=== PATIENT | female | born 1995 | race Caucasian/White ===

== ENCOUNTER 2025-05-14 08:51 | Emergency (ER) | payer SELFPAY ==
--- OUTSIDE RECORDS SUMMARY | 2025-05-10 18:15 | XMS_ITS | Encounter Summary ---
Author Organization [facility] tem Address [id number] [address] [place] [address] Care Team Providers Care Sales Agent [employer] Name Role Phone Ten Paulson DO Primary Care Provider [phone] Reason for Visit * Reason Comments Foot Pain Ankle Pain Patient c/o right fo ot and ankle pain for 3-4 days. States she jumped in shallow pool and landed hard on right foot Encounter Details Date Type Department Care Team (Late st Contact Info) Description 05/10/2025 6:15 PM EDT - 05/10/2025 8:22 PM EDT Emergency [facility] - Emergency [address] [place] [address] Right foot pain (Primary Dx) Discharge Disposition: Home Social History Tobacco Use Types Packs/Day Years Used Date Smoking Tobacco: Never Smokeless Tobacco: Never Alcohol Use Standard Drinks/Week Comments Yes 0 (1 standard drink = 0.6 oz pur e alcohol) maybe once a month Childcare Answer Date Recorded Childcare Unknown 03/06/2019 Employment Answer Date Recorded Employment Unknown 03/06/2019 Hunger Screening Answer Date Recorded Within the past 12 months we worried whether our food would run out before we got money to buy more. Never True 05/10/2025 Within the past 12 months th e food we bought just didn't last and we didn't have money to get more. Never True 05/10/2025 Purpose - Life Answer Date Recorded Purpose and direction in life Unknown Comments No Sex and Gender Information Value Date Recorded Sex Assigned at Not on file Legal Sex Female 11:49 AM EDT Gender Identity Not on file Sexual Orientation Not on file documented as of this encounter Last Filed Vital Signs Vital Sign Reading Time Taken Comments Blood Pressure 127/94 05/10/2025 8:19 PM EDT Pulse 79 05/10/2025 8:19 PM EDT Temperature 37 C (98.6 F) 05/10/2025 5:40 PM EDT Respiratory Rate 17 05/10/2025 8:19 PM EDT Oxygen Saturation 98% 05/10/2025 8:19 PM EDT Inhaled Oxygen Concentration - - Weight 76.2 kg (168 lb) 05/10/2025 5:40 PM EDT Height 157.5 cm (5' 2 ) 05/10/2025 5:40 PM EDT Body Mass Index 30.73 05/10/2025 5:40 PM EDT documented in this encounter Discharge Instructions * Discharge Instructions* ANASTASIYA Gonzalez - 05/10/2025 7:59 PM EDT Thank you for choosing us for your medical care. We know you have a choice, and we appreciate you choosing us for your medical concerns! You may receive a survey from the hospital about your visit. We very much appreciate your comments and concerns. Please read all medication insert instructions and side effects when dispensed by the pharmacy. Every medication has side effects, and you may experience any of them. Please call the emergency room with any questions or concerns you have. Please call your doctor for outpatient follow up and recommendations. The emergency room cannot replace ongoing care, and it is important for your personal physician to evaluate you and monitor your health. Return to the ER for increased pain, fever > 101.5, vomiting twice, or any concern you deem emergent. Wen Baca CNP documented in this encounter Medications at Time of Discharge at-[id number]-[id number]-Ca carb-vit K (WOMEN'S MULTIVITAMIN) 18 mg-400 mcg- 500 mg-50 mcg tablet Take by mouth. documented as of this encounter ED Notes * ANASTASIYA Gonzalez - 05/10/2025 6:31 PM EDT Images from the original note were not included. [facility] - EM[facility] Pt Name: Lanie Freeman Birthdate: 1995 Chief Complaint: Chief Complaint Patient presents with Foot Pain Ankle Pain Patient c/o right foot and ankle pain for 3-4 days. States she jumped in shallow pool and landed hard on right foot History of Present Illness: Lanie Freeman is a 29-year-old female that presents to ED with complaint of right ankle/foot pain. Patient states around 3-4 days ago she jumped into a shallow underground pool landing on her right heel/foot. She states since then she has had pain in the medial malleolus and along her foot. No outwardsigns of trauma such as bruising swelling or deformity. Patient has been able to ambulate but states the pain is worse with bearing weight. Past Medical History: Past Medical History: Diagnosis Date Asthma Past Surgical History: Past Surgical History: Procedure Laterality Date WISDOM TOOTH EXTRACTION December 2019 Family History: Family History Problem Relation Age of Onset Depression Mother Alcohol abuse Mother Social History: Social History Socioeconomic History Marital status: Single Tobacco Use Smoking status: Never Smokeless tobacco: Never Substance and Sexual Activity Alcohol use: Yes Comment: maybe once a month Drug use: No Sexual activity: Defer Social Drivers of Health Food Insecurity: No Food Insecurity (05/10/2025) Hunger Screening Food Insecurity - Worry: Never True Food Insecurity - Inability: Never True Review of Systems: Review of Systems Constitutional: Negative for chills and fever. HENT: Negative for ear pain. Eyes: Negative for pain. Respiratory: Negative for shortness of breath. Cardiovascular: Negative for chest pain/discomfort. Gastrointestinal: Negative for abdominal pain, diarrhea, nausea and vomiting. Genitourinary: Negative for flank pain. Musculoskeletal: Negative for back pain. Right ankle/foot pain Skin: Negative for rash. Neurological: Negative for headaches. Psychiatric/Behavioral: Negative for sleep disturbance and suicidal ideas. Physical Exam: ED Triage Vitals [05/10/25 1740] Temp Heart Rate Resp BP SpO2 37 ??C (98.6 ??F) 76 20 131/81 99 % Temp Source Heart Rate Source Patient Position BP Location FiO2 (%) Oral Pulse Ox Sitting Left arm -- Vitals: 05/10/25 1740 BP: 131/81 Temp: 37 ??C (98.6 ??F) TempSrc: Oral Pulse: 76 Resp: 20 SpO2: 99% Height: 157.5 cm (5' 2 ) Weight: 76.2 kg (168 lb) Physical Exam Vitals reviewed. HENT: Head: Normocephalic and atraumatic. Eyes: Conjunctiva/sclera: Conjunctivae normal. Cardiovascular: Rate and Rhythm: Normal rate. Pulmonary: Effort: Pulmonary effort is normal. Breath sounds: Normal breath sounds. Abdominal: General: There is no distension. Palpations: Abdomen is soft. Musculoskeletal: General: Normal range of motion. Cervical back: Normal range of motion and neck supple. Left foot: Normal range of motion and normal capillary refill. Tenderness present. No swelling, deformity or laceration. Normal pulse. Skin: General: Skin is warm and dry. Neurological: General: No focal deficit present. Mental Status: She is alert and oriented to person, place, and time. GCS: GCS eye subscore is 4. GCS verbal subscore is 5. GCS motor subscore is 6. Procedure: Procedures Re-evaluation: 1954 - imaging unremarkable. Darrel wrap ordered. Patient encouraged to use ice along with Motrin or Tylenol as needed for pain. Encouraged to follow up with family doctor. Medical Decision Making Plan of care - x-ray Amount and/or Complexity of Data Reviewed Radiology: ordered. Decision-making details documented in ED Course. ED Course: Clinical Impressions as of 05/10/251999 Right foot pain . ED Disposition ED Disposition Discharge Date/Time Sat May 10, 2025 7:59 PM Comment At the time of discharge, the plan has been discussed with the patient regarding the diagnosis and prognosis. All questions have been answered. Verbal discharge instructions were discussed with the patient. The patient has been advised to follow up w ith their Primary Care Provider within 1 week. The patient was also instructed to return to the ED if their symptoms change, worsen, new symptoms arise or if they have any additional concerns. AYESHA Supervision Only Supervising Physician was Dr. Estela Goldberg Please note that portions of this note were completed with a voice recognition program. Efforts were made to edit the dictations but occasionally words are mis-transcribed. ANASTASIYA Gonzalez 05/10/25 1835 ANASTASIYA Gonzalez 05/10/251999 documented in this encounter Plan of Treatment Upcoming Encounters Date Type Department Care Team (Late st Contact Info) Description 06/04/2025 10:30 AM EDT Office Visit [facility] [address] [place] [address] [place] [id number] Lizethmariel Ten Heidi, DO [address], [address] [place], [place] [id number] documented as of this encounter Procedures Procedure Name Priority Date/Time Associated Diagnosis Comments XR ANKLE RT MIN 3 VWS STAT 05/10/2025 6:34 PM EDT XR FOOT RT MIN 3 VWS STAT 05/10/2025 6:33 PM EDT documented in this encounter Results * X-ray ankle right minimum 3 views (05/10/2025 6:34 PM EDT) Anatomical Region Laterality Modality Lower Extremities, MSK, Ankle Right Co mputed Radiography 05/10/2025 7:09 PM EDT Narrative 05/10/2025 7:09 PM EDT XR ANKLE RT MIN 3 VWS: 05/10/2025 6:26 PM CLINICAL INDICATION: Pain COMPARISON: None. TECHNIQUE: AP, oblique, lateral views of the right ankle FINDINGS: Joint space and alignment of the right ankle is intact without evidence of acute fracture or subluxation. Normal ankle mortise, no clear space widening. Achilles tendon is intact. The visualized calcaneus is intact. IMPRESSION: No acute osseous abnormality of the right ankle. Finalized by Jorge José MD on 05/10/2025 7:09 PM Procedure Note Jorge José MD - 05/10/2025 XR ANKLE RT MIN 3 VWS: 05/10/2025 6:26 PM CLINICAL INDICATION: Pain COMPARISON: None. TECHNIQUE: AP, oblique, lateral views of the right ankle FINDINGS: Joint space and alignment of the right ankle is intact without evidence ofacute fracture or subluxation. Normal ankle mortise, no clear spacewidening. Achilles tendon is intact. The visualized calcaneus is intact. IMPRESSION: No acute osseous abnormality of the right ankle. Finalized by Jorge José MD on 05/10/2025 7:09 PM Cara Goldberg DO [facility] ORDER JAMES Final Result * X-ray foot right minimum 3 views (05/10/2025 6:33 PM EDT) Anatomical Region Laterality Modality Lower Extremities, MSK, Foot Right Com puted Radiography 05/10/2025 7:10 PM EDT Narrative 05/10/2025 7:11 PM EDT XR FOOT RT MIN 3 VWS: 05/10/2025 6:26 PM CLINICAL INDICATION: Pain COMPARISON: None. TECHNIQUE: AP, oblique, lateral views the right foot. FINDINGS: Joint spaces and alignment of the right foot are intact without evidence of acute fracture dislocation, soft tissues are unremarkable, Achilles tendon is intact. IMPRESSION: No acute osseous abnormality of the right foot. Finalized by Jorge José MD on 05/10/2025 7:11 PM Procedure Note Jorge José MD - 05/10/2025 XR FOOT RT MIN 3 VWS: 05/10/2025 6:26 PM CLINICAL INDICATION: Pain COMPARISON: None. TECHNIQUE: AP, oblique, lateral views the right foot. FINDINGS: Joint spaces and alignment of the right foot are intact without evidenceof acute fracture dislocation, soft tissues are unremarkable, Achillestendon is intact. IMPRESSION: No acute osseous abnormality of the right foot. Finalized by Jorge José MD on 05/10/2025 7:11 PM Cara Goldberg DO [facility] JAMES Final Result documented in this encounter Visit Diagnoses Diagnosis Right foot pain- Primary Pain in soft tissues of limb documented in this encounter Care Teams Sales Agent Fire Insurance Relationship Specialty Start Date End Date Ten Paulson DO [address] [place] [address], [place] [address] PCP - General Family Medicine 05/10/25 documented as of this encounter
[2025-05-14 09:02] VITALS: BP 126/81; PULSE 89; TEMP 36.6; O2SAT 98; BMI 30.7
[2025-05-14] MEDS: KETOROLAC TROMETHAMINE 30 MG/ML VIAL IM (09:33)
--- NOTE | 2025-05-14 10:48 | ED.LOWEXI1 ---
HPI HPI - Extremity Injury (Lower) General Chief Complaint: Extremity Injury, Lower Stated Complaint: lower extremity injury - 7days ago Time Seen by Provider: 05/14/25 09:16 Source: patient Mode of arrival: walk-in History of Present Illness HPI Narrative: The patient is coming to the ER with almost 1 week history of right heel pain she mentioned that she has not been able to put weight on her right heel since she had an injury, the patient almost a week ago jumped into the pool with her heel hitting the floor of the pool first, the pain instantly started she mentioned that she tried [id number] medication and some Darrel wrap and there is no improvement No other injuries and the pain is limited only to the right heel Related Data Previous Rx's ?Medication ?Instructions ?Recorded diclofenac sodium 75 mg 75 mg PO BID PRN pain #20 tabs 05/14/25 tablet,delayed release Allergies Allergy/AdvReac Type Severity Reaction Status Date / Time No Known Drug Allergies Allergy Verified 05/14/25 09:02 Opioid HPI Opioid Management Most Recent Pain and Opioid Data: Last Pain Scale 7 Today, 09:33 Last MAR Pain Assessment Today, 09:33 Review of Systems ROS Status of ROS 10 or more systems reviewed and unremarkable except as noted in history and below PFSH PFSH Social History Little interest or pleasure in doing things: not at all Feeling down, depressed, or hopeless: not at all Exam Narrative Exam Narrative: Nurses notes and vital signs reviewed and patient is not hypoxic. General: Well-appearing and in no apparent distress. Skin: Warm, dry, no pallor noted. No rash. Lower extremity: Right lower extremity examination showed that the patient had tenderness upon palpation of the heel there is no ecchymosis that seen or any open wounds When the patient walking she is avoiding putting weight on her right heel No vascular injury detected Constitutional Vital Signs, click to edit/add: Last Vital Signs Temp 98 F 05/14/25 09:02 Pulse 89 05/14/25 09:02 Resp 16 05/14/25 09:02 BP 126/81 05/14/25 09:02 Pulse Ox 98 05/14/25 09:02 O2 Del Method Room Air 05/14/25 09:02 Course Vital Signs Vital signs: Vital Signs Temperature 98 F 05/14/25 09:02 Pulse Rate 89 05/14/25 09:02 Respiratory Rate 16 05/14/25 09:02 Blood Pressure 126/81 05/14/25 09:02 Pulse Oximetry 98 05/14/25 09:02 Oxygen Delivery Method Room Air 05/14/25 09:02 Temperature 98 F 05/14/25 09:02 Pulse Rate 89 05/14/25 09:02 Respiratory Rate 16 05/14/25 09:02 Blood Pressure 126/81 05/14/25 09:02 Pulse Oximetry 98 05/14/25 09:02 Oxygen Delivery Method Room Air 05/14/25 09:02 MDM - Extremity Injury (Lower) MDM Narrative Medical decision making narrative: The patient x-ray of the right ankle and foot showed no acute pathology although the patient does have some spurs in her heel I did discuss the patient case because of her history of injury and the mechanism was concerning initially with Dr. Rojas and he recommended the patient have a walking boot The patient was discharged with to follow-up with him as outpatient with Voltaren as needed for pain The patient is to follow up with primary care physician in next 2-3 days or to return to the emergency department should any of the signs or symptoms worsen or new symptoms develop. The patient agrees with the following Diagnosis and Treatment plan and the patient will be discharged home. Discharge Plan Discharge Chief Complaint: Extremity Injury, Lower Clinical Impression: Contusion of heel Patient Disposition: Home, Self-Care Time of Disposition Decision: 10:53 Condition: Good Prescriptions / Home Meds: New diclofenac sodium 75 mg tablet,delayed release (DR/EC) 75 mg PO BID PRN (Reason: pain) Qty: 20 0RF Print Language: Mongolian Instructions: Foot Contusion (ED) Referrals: Antoine Rojas DPM [Physician, Podiatry] - 1 week Ten Paulson DO [Primary Care Provider] - 1 week Discharge Date/Time: 05/14/25 11:05
== END 2025-05-14 11:05 | disposition home or self-care (01) ==
PROVIDERS: Emergency Provider Emergency Medicine; PCP Family Medicine
DX: S90.31XA Contusion of right foot, initial encounter (principal); W16.522A Jumping or diving into swimming pool striking bottom causing other injury, initial encounter
CPT/HCPCS: 73610; 73630; 96372; 99284; J1885